=== PATIENT | female | born 1950 | race African-American/Black ===

== ENCOUNTER 2021-03-14 09:20 | Observation (INO) | payer OTHER ==
[2021-03-14] MEDS ORDERED: MECLIZINE HCL 12.5 MG TAB ONE (10:31)
[2021-03-14] MEDS ORDERED: ONDANSETRON 4 MG/2 ML VIAL ONE (10:31)
--- NOTE | 2021-03-14 10:32 | RAD REPORT ---
EXAM DESCRIPTION: CT - Head Brain Wo Cont - 03/14/2021 10:24 am CLINICAL HISTORY: DIZZINESS COMPARISON: No comparisons TECHNIQUE: Axial 5 mm thick images of the head were obtained without IV contrast. All CT scans are performed using dose optimization technique as appropriate and may include automated exposure control or mA/KV adjustment according to patient size. FINDINGS: No intracranial hemorrhage, mass, edema or shift of mid-line structures. No acute cortical based infarction seen. No cortical edema or sulcal effacement confirmed. Patient does have minimal a trophy change. Ventricles are normal. Moderately prominent areas of diminished attenuation are seen s cattered in the cerebral right matter extending towards the right basal ganglia. This is typically ch ronic ischemic change and could potentially mask nonhemorrhagic CVA. No abnormal extra-axial fluid co llections. Mastoid air cells and visualized portions of the paranasal sinuses are clear. No acute bony findings. IMPRESSION: No hemorrhage, mass, edema or acute cortical based infarction seen. Extensive chronic ischemic change in the cerebral white matter which could potentially mask nonhemorr hagic CVA.
[2021-03-14 10:44] LABS: Absolute Lymphocytes (CBC) 1.2 K/uL (0.7-4.9); Basophils % 0.5 % (0-1.3); Hematocrit 35.4 % (36.0-45.0); Lymphocytes % 14.3 % (15.3-44.8); MPV 9.9 fL (7.6-11.3); Protime INR 1.24; RBC Red Blood Cell Count 3.97 M/uL (3.86-4.86)
[2021-03-14] MEDS ORDERED: DIAZEPAM 10 MG/2 ML INJ SYRINGE ONE (11:26)
--- NOTE | 2021-03-14 11:46 | RAD REPORT ---
EXAM DESCRIPTION: CT - Head angio - 03/14/2021 11:29 am CLINICAL HISTORY: DIZZINESS TECHNIQUE: During dynamic enhancement using nonionic IV contrast, axial 1 millimeter thick images of the head were obtained. Sagittal and axial reconstruction images were generated using MIP technique and reviewed. All CT scans are performed using dose optimization technique as appropriate and may include automated exposure control or mA/KV adjustment according to patient size. COMPARISON: CT head same date FINDINGS: No aneurysm or vascular malformation identified. Major venous sinuses are patent. No stenosis, named branch occlusion, vasculitis or other significant vascular finding identifiable. Distal right vertebral artery wall calcifications are present without luminal narrowing. IMPRESSION: Negative CT angio head examination for acute or significant finding.
--- NOTE | 2021-03-14 11:48 | RAD REPORT ---
EXAM DESCRIPTION: CT - Neck Angio - 03/14/2021 11:29 am CLINICAL HISTORY: dizziness TECHNIQUE: During dynamic enhancement using nonionic IV contrast, axial 2 mm thick images of the nec k were obtained. Sagittal and axial reconstruction images were generated using MIP technique and revi ewed. All CT scans are performed using dose optimization technique as appropriate and may include automated exposure control or mA/KV adjustment according to patient size. COMPARISON: CT head same date, CTA head same date FINDINGS: No aneurysm or vascular malformation identified. No carotid or vertebral dissection. No aortic arch or great vessel origin abnormality seen. Vertebral artery origins unremarkable as well . No stenosis, vasculitis or other significant carotid artery finding. No focal abnormality of either vertebral artery. Basilar artery is normal. Scattered wall calcifications are present without lumina l narrowing. IMPRESSION: Negative CT angio neck examination for acute or significant finding.
[2021-03-14 11:53] LABS: ALT/SGPT 20 U/L (12-78); AST/SGOT 16 U/L (15-37); Albumin 3.6 g/dL (3.4-5.0); Alkaline Phosphatase 55 U/L (45-117); BUN Blood Urea Nitrogen 15 mg/dL (7-18); Bicarbonate 27 mmol/L (21-32); Bilirubin Direct 0.2 mg/dL (0-0.2); Bilirubin Total 0.8 mg/dL (0.2-1.0); Glucose Level 175 mg/dL (74-106); NT PRO-BNP 112 pg/mL (<125); Potassium 3.8 mmol/L (3.5-5.1); Sodium Level 138 mmol/L (136-145); Troponin (Emerg Dept Use Only) < 0.02 ng/mL (0.0-0.045)
--- NOTE | 2021-03-14 12:06 | RAD REPORT ---
EXAM DESCRIPTION: MRI - Brain Wo Cont - 03/14/2021 11:55 am CLINICAL HISTORY: DIZZINESS COMPARISON: Head Brain Wo Cont dated 03/14/2021 TECHNIQUE: Sagittal T1-weighted images were obtained along with axial PD, heavily T2-weighted and T2 -FLAIR images. Axial DWI and ADC mapping sequences were also obtained along with coronal heavily T2-w eighted images. FINDINGS: No intracranial hemorrhage, mass or acute infarction. There is no edema or shift of midlin e structures. No extra-axial fluid collections. Morrow-matter/white matter junction is preserved. Signa l voids are seen as a normal finding in the major intracranial vessels. No significant degree of atrophy noted. Ventricles are normal. Prominent T2/IR white matter signal ab normalities are present involving minimally the right basal ganglia and the right external capsule. P attern is typical for chronic ischemic change. Brainstem is spared. Mastoid air cells and paranasal sinuses are clear. No sella or supra sella suspicious finding. There is an empty sella configuration. No globe or orbita l content abnormality. IMPRESSION: No acute infarction changes. Moderate severity chronic ischemic change in the cerebral white matter and to a lesser degree the rig ht basal ganglia and right external capsule region.
[2021-03-14 13:35] LABS: Urine Blood 2+ (Negative); Urine Glucose NEGATIVE (Negative); Urine Protein NEGATIVE (Negative); Urine Specific Gravity 1.015 (1.005-1.030)
--- NOTE | 2021-03-14 15:06 | ER ---
Nurse's Notes [facility] Name: Carmina Obrien Age: 70 yrs Sex: Female : 1950 Arrival Date: 03/14/2021 Time: 09: Bed 19 Private MD: Diagnosis: Vertigo (Intractable) Presentation: 03/14 09:45 Chief complaint: Patient states: Dizziness, N/V that began Sunday at 0500. PT reports ss when she repositions the rooms seems like it's spinning. Coronavirus screen: Client denies travel out of the [place] in the last 14 days. Ebola Screen: Patient denies exposure to infectious person. Patient denies travel to an Ebola-affected area in the 21 days before illness onset. Initial Sepsis Screen: Does the patient meet any 2 criteria? No. Patient's initial sepsis screen is negative. Does the patient have a suspected source of infection? No. Patient's initial sepsis screen is negative. Risk Assessment: Do you want to hurt yourself or someone else? Patient reports no desire to harm self or others. Onset of symptoms was March 13, 2021. 09:45 Method Of Arrival: Wheelchair ss 09:45 Acuity: SHADY 3 ss Triage Assessment: :45 General: Appears distressed, uncomfortable, Behavior is cooperative, appropriate for bp age, anxious. Pain: Denies pain. EENT: No deficits noted. Neuro: Reports dizziness, photophobia. Cardiovascular: No deficits noted. Respiratory: No deficits noted. GI: Reports nausea. : No signs and/or symptoms were reported regarding the genitourinary system. Derm: No deficits noted. Musculoskeletal: No deficits noted. Historical: - Allergies: :47 No Known Allergies; ss - PMHx: :47 Hypertension; Diabetes - NIDDM; ss - PSHx: :47 cyst removal; ss - Immunization history:: Adult Immunizations up to date. - Social history:: Smoking status: Patient denies any tobacco usage or history of. Screenin:45 Abuse screen: Denies threats or abuse. Denies injuries from another. Nutritional bp screening: No deficits noted. Tuberculosis screening: No symptoms or risk factors identified. Fall Risk None identified. Assessment: :45 General: SEE TRIAGE NOTE. GI: Abdomen is non-distended. bp 11:00 Reassessment: No changes from previously documented assessment. Patient and/or family bp updated on plan of care and expected duration. Pain level reassessed. Patient is alert, oriented x 3, equal unlabored respirations, skin warm/dry/pink. PT TO MRI. 12:00 Reassessment: No changes from previously documented assessment. Patient and/or family bp updated on plan of care and expected duration. Pain level reassessed. Patient is alert, oriented x 3, equal unlabored respirations, skin warm/dry/pink. PT RETURNED FROM MRI. 12:59 Reassessment: Patient and/or family updated on plan of care and expected duration. Pain bp level reassessed. Patient is alert, oriented x 3, equal unlabored respirations, skin warm/dry/pink. PROVIDER AT B/S FOR RE-EVAL Patient states symptoms have improved. 15:00 Reassessment: No changes from previously documented assessment. Patient and/or family bp updated on plan of care and expected duration. Pain level reassessed. Patient is alert, oriented x 3, equal unlabored respirations, skin warm/dry/pink. ADMIT INITIATED. 17:00 Reassessment: No changes from previously documented assessment. Patient and/or family bp updated on plan of care and expected duration. Pain level reassessed. Neuro: Gait is unsteady. 18:00 Reassessment: No changes from previously documented assessment. Patient and/or family bp updated on plan of care and expected duration. Pain level reassessed. Patient is alert, oriented x 3, equal unlabored respirations, skin warm/dry/pink. ADMIT IN PROCESS. PT UNSTEADY WITH AMBULATION. Vital Signs: 09:45 BP 171 / 75; Pulse 64; Resp 15; Temp 98.1(TE); Pulse Ox 98% on R/A; Weight 70.31 kg; ss Height 5 ft. 6 in. (167.64 cm); Pain 0/10; 10:00 BP 152 / 58; Pulse 57; Resp 17; Pulse Ox 95% ; bp 11:00 BP 172 / 66; Pulse 55; Resp 15; Pulse Ox 97% ; bp 12:00 BP 177 / 66; Pulse 55; Resp 17; Pulse Ox 97% ; bp 13:00 BP 154 / 64; Pulse 63; Resp 15; Pulse Ox 100% ; bp 15:02 BP 163 / 69; Pulse 57; Resp 18; Temp 98.6(O); Pulse Ox 99% on R/A; mh5 16:00 BP 163 / 66; Pulse 54; Resp 16; Pulse Ox 99% ; bp 17:00 BP 157 / 67; Pulse 56; Resp 16; Pulse Ox 99% ; bp 18:00 BP 153 / 65; Pulse 58; Resp 16; Pulse Ox 98% ; bp 09:45 Body Mass Index 25.02 (70.31 kg, 167.64 cm) ED Course: 09:21 Patient arrived in ED. ds1 09:46 Triage completed. ss 09:47 Arm band placed on right wrist. 09:48 Amor Aj PA is PHCP. [facility] 09:48 Alfonzo Escobar MD is Attending Physician. [facility] 09:57 Tomas Amin, RN is Primary Nurse. bp 10:21 Basic Metabolic Panel Sent. mh5 10:22 CBC with Diff Sent. 5 10:22 LFT's Sent. 5 10:22 Magnesium Sent. 5 10:22 NT PRO-BNP Sent. 5 10:22 PT-INR Sent. 5 10:22 Troponin (emerg Dept Use Only) Sent. 5 10:22 Initial lab(s) drawn, by az, sent to lab. Inserted saline lock: 20 gauge in right [facility] antecubital area, using aseptic technique. Blood collected. 10:23 Patient has correct armband on for positive identification. Bed in low position. Call [facility] light in reach. Side rails up X2. Adult w/ patient. Warm blanket given. printed circuit board assembler on. Pulse ox on. NIBP on. 10:24 CT Head Brain wo Cont In Process Unspecified. EDMS 11:30 CT Head Angio In Process Unspecified. EDMS 11:30 CT Neck Angio In Process Unspecified. EDMS 11:54 MRI - Brain Wo Cont In Process Unspecified. EDMS 15:05 Alf Rodríguez MD is Hospitalizing Provider. [facility] 19:19 Primary Nurse role handed off by Tomas Amin, KEITH 19:19 Garret Pike, KEITH is Primary Nurse. 03/15 07:40 Primary Nurse role handed off by Garret Pike, KEITH bd Administered Medications: 03/14 10:20 Drug: Meclizine 25 mg Route: PO; bp 11:18 Follow up: Response: No adverse reaction bp 10:20 Drug: Zofran (Ondansetron) 4 mg Route: IVP; Site: right antecubital; bp 11:18 Follow up: Response: No adverse reaction bp 11:05 Drug: Valium (diazepam) 2 mg Route: IVP; Site: right antecubital; bp 12:21 Follow up: Response: No adverse reaction bp 13:05 Drug: Valium (diazepam) 2 mg Route: IVP; Site: right antecubital; bp 19:24 Follow up: Response: No adverse reaction sf Outcome: 15:05 Decision to Hospitalize by Provider. charlie 03/15 10:34 Patient left the ED. hb Signatures: Dispatcher [employer] EDMS Rosa Warner Joel, PA PA [facility] Karena Dietz ds1 Tere Dickinson RN RN ss Sommer Sullivan RN RN Tameka Ware [facility] Tomas Amin RN RN Garret Pike RN RN sf Corrections: (The following items were deleted from the chart) 03/14 13:16 12:59 Reassessment: PROVIDER AT B/S FOR RE-EVAL bp bp 18:32 17:00 Reassessment: No changes from previously documented assessment. Patient and/or bp family updated on plan of care and expected duration. Pain level reassessed. Patient is alert, oriented x 3, equal unlabored respirations, skin warm/dry/pink. ADMIT IN PROCESS. PT UNSTEADY WITH AMBULATION bp
--- NOTE | 2021-03-14 15:06 | EDPHYS ---
Physician Documentation [facility] Name: Carmina Obrien Age: 70 yrs Sex: Female : 1950 Arrival Date: 03/14/2021 Time: 09:21 Bed 19 Private MD: ED Physician Alfonzo Escobar HPI: 03/14 10:01 This 70 yrs old Black Female presents to ER via Wheelchair with complaints of jmm Dizziness, Nausea. 10:01 The patient presents with dizziness. Onset: The symptoms/episode began/occurred jmm acutely, 1 day(s) ago. Modifying factors: The symptoms are alleviated by nothing, the symptoms are aggravated by movement of head. Associated signs and symptoms: Pertinent positives: vomiting, diarrhea, Pertinent negatives: abdominal pain. The patient has experienced a previous episode. This is a 70 year old female with a history of dm, htn that presents to the ED with complaints of acute onset dizziness beginning yesterday with multiple episodes of vomiting, diarrhea. Denies abdominal pain. Patient states she has had vertigo in the past. . Historical: - Allergies: 09:47 No Known Allergies; ss - PMHx: 09:47 Hypertension; Diabetes - NIDDM; ss - PSHx: 09:47 cyst removal; ss - Immunization history:: Adult Immunizations up to date. - Social history:: Smoking status: Patient denies any tobacco usage or history of. ROS: 10:01 Constitutional: Negative for fever, chills, and weight loss, Cardiovascular: Negative jmm for chest pain, palpitations, and edema, Respiratory: Negative for shortness of breath, cough, wheezing, and pleuritic chest pain. 10:01 Abdomen/GI: Positive for nausea and vomiting, diarrhea, Negative for abdominal pain. 10:01 Neuro: Positive for dizziness. 10:01 All other systems are negative. Exam: 10:01 Head/Face: atraumatic. jmm 10:01 Neck: Trachea midline, Supple Chest/axilla: Normal chest wall appearance and motion. Cardiovascular: Regular rate and rhythm. No edema appreciated Respiratory: Normal respirations, no respiratory distress appreciated Abdomen/GI: Non distended, soft Back: Normal ROM Skin: General appearance color normal MS/ Extremity: Moves all extremities, no obvious deformities appreciated, no edema noted to the lower extremities Psych: Behavior is normal, Mood is normal, Patient is cooperative and pleasant 10:01 Constitutional: The patient appears alert, awake, uncomfortable. 10:01 Eyes: Nystagmus: nystagmus with fast component noted. 10:01 Neuro: Orientation: is normal, Mentation: is normal, Memory: is normal. Vital Signs: 09:45 BP 171 / 75; Pulse 64; Resp 15; Temp 98.1(TE); Pulse Ox 98% on R/A; Weight 70.31 kg; ss Height 5 ft. 6 in. (167.64 cm); Pain 0/10; 10:00 BP 152 / 58; Pulse 57; Resp 17; Pulse Ox 95% ; bp 11:00 BP 172 / 66; Pulse 55; Resp 15; Pulse Ox 97% ; bp 12:00 BP 177 / 66; Pulse 55; Resp 17; Pulse Ox 97% ; bp 13:00 BP 154 / 64; Pulse 63; Resp 15; Pulse Ox 100% ; bp 15:02 BP 163 / 69; Pulse 57; Resp 18; Temp 98.6(O); Pulse Ox 99% on R/A; mh5 16:00 BP 163 / 66; Pulse 54; Resp 16; Pulse Ox 99% ; bp 17:00 BP 157 / 67; Pulse 56; Resp 16; Pulse Ox 99% ; bp 18:00 BP 153 / 65; Pulse 58; Resp 16; Pulse Ox 98% ; bp 09:45 Body Mass Index 25.02 (70.31 kg, 167.64 cm) ss MDM: 09:51 Patient medically screened. [facility] 15:04 Data reviewed: vital signs, nurses notes. Counseling: I had a detailed discussion with [facility] the patient and/or guardian regarding: the historical points, exam findings, and any diagnostic results supporting the discharge/admit diagnosis, lab results, the need for further work-up and treatment in the hospital. ED course: I discussed the patient with Dr. Rodríguez, advises to give meclizine 25 mg q 6 hours. Will admit for intractable dizziness. . 03/14 09:57 Order name: Basic Metabolic Panel; Complete Time: 11:58 [facility] 03/14 09:57 Order name: CBC with Diff; Complete Time: 10:50 [facility] 03/14 09:57 Order name: LFT's; Complete Time: 11:58 [facility] 03/14 09:57 Order name: Magnesium; Complete Time: 11:58 [facility] 03/14 09:57 Order name: NT PRO-BNP; Complete Time: 11:58 [facility] 03/14 09:57 Order name: PT-INR; Complete Time: 10:50 [facility] 03/14 09:57 Order name: Troponin (emerg Dept Use Only); Complete Time: 11:58 [facility] 03/14 12:06 Order name: CREATININE WHOLE BLOOD [facility] 03/14 13:16 Order name: Urine Dipstick--Ancillary (enter results); Complete Time: 13:44 03/14 15:10 Order name: Basic Metabolic Panel [facility] 03/14 15:10 Order name: Basic Metabolic Panel; Complete Time: 09:15 [facility] 03/14 15:10 Order name: CBC with Automated Diff [facility] 03/14 09:57 Order name: EKG; Complete Time: 10:06 [facility] 03/14 09:57 Order name: Cardiac monitoring; Complete Time: 10:21 [facility] 03/14 09:57 Order name: EKG - Nurse/Tech; Complete Time: 12:22 [facility] 03/14 09:57 Order name: IV Saline Lock; Complete Time: 10:21 [facility] 03/14 09:57 Order name: Labs collected and sent; Complete Time: 10:05 [facility] 03/14 09:57 Order name: O2 Per Protocol; Complete Time: 10:04 [facility] 03/14 09:57 Order name: CT Head Brain wo Cont; Complete Time: 10:35 [facility] 03/14 10:58 Order name: CT Head Angio; Complete Time: 11:52 [facility] 03/14 10:58 Order name: CT Neck Angio; Complete Time: 11:52 [facility] 03/14 10:58 Order name: MRI - Brain Wo Cont; Complete Time: 12:08 [facility] 03/14 15:10 Order name: Consistent Carb (ADA) 1800 Jose EDKS 03/14 15:10 Order name: CBC with Automated Diff; Complete Time: 09:15 [facility] 03/14 09:57 Order name: O2 Sat Monitoring; Complete Time: 10:04 [facility] 03/14 10:09 Order name: Urine Dipstick-Ancillary (obtain specimen); Complete Time: 13:23 [facility] 03/14 10:47 Order name: Labs - recollect needed: recollect green top; Complete Time: 11:18 03/14 14:39 Order name: Margarito. Order: ambulate patient; Complete Time: 15: [facility] Administered Medications: 10:20 Drug: Meclizine 25 mg Route: PO; bp 11:18 Follow up: Response: No adverse reaction bp 10:20 Drug: Zofran (Ondansetron) 4 mg Route: IVP; Site: right antecubital; bp 11:18 Follow up: Response: No adverse reaction bp 11:05 Drug: Valium (diazepam) 2 mg Route: IVP; Site: right antecubital; bp 12:21 Follow up: Response: No adverse reaction bp 13:05 Drug: Valium (diazepam) 2 mg Route: IVP; Site: right antecubital; bp 19:24 Follow up: Response: No adverse reaction sf Disposition: 03/16 10:05 Co-signature as Attending Physician, Alfonzo Escobar MD I agree with the assessment and tw4 plan of care. Disposition: 03/14/21 15:05 Hospitalization ordered by Alf Rodríguez for Inpatient Admission. Preliminary diagnosis is Vertigo (Intractable). - Bed requested for [facility] ER HOLD. - Status is Inpatient Admission. hb - Condition is Stable. - Problem is an acute exacerbation. - Symptoms have improved. Signatures: Dispatcher [employer] EDKS Rosa Warner Joel, PA PA [facility] Tere Dickinson, RN RN Sommer Sullivan RN RN Tomas Amin, RN RN Alfonzo Salinas MD MD 4 Jane Andersen 2 Garret Pike RN sf Corrections: (The following items were deleted from the chart) 03/14 11: 11:01 [facility] 19[facility] 15:05 Hospitalization Ordered by A Anne JARAMILLO for Inpatient Admission. Preliminary mw2 diagnosis is Vertigo (Intractable). Bed requested for Telemetry/MedSurg (Inpatient). Status is Inpatient Admission. Condition is Stable. Problem is an acute exacerbation. Symptoms have improved. [facility] 03/15 10:34 03/14 19:45 03/14/2021 15:05 Hospitalization Ordered by A Anne JARAMILLO for Inpatient hb Admission. Preliminary diagnosis is Vertigo (Intractable). Bed requested for [facility] ER HOLD. Status is Inpatient Admission. Condition is Stable. Problem is an acute exacerbation. Symptoms have improved. mw2
[2021-03-14] MEDS ORDERED: ACETAMINOPHEN 500 MG TAB PO PRN (15:09)
[2021-03-14] MEDS ORDERED: ONDANSETRON 4 MG/2 ML VIAL IV PRN (15:09)
[2021-03-14 18:37] VITALS: O2SAT 99
[2021-03-14] MEDS: NA CHLORIDE 0.9% 1,000 ML IV SCH (20:00)
[2021-03-14] MEDS ORDERED: NA CHLORIDE 0.9% 1,000 ML ONE (20:02)
[2021-03-14 20:57] VITALS: BMI 25.0
[2021-03-15] MEDS ORDERED: MECLIZINE HCL 12.5 MG TAB ONE ×2 (00:11→06:31)
[2021-03-15] MEDS: MECLIZINE HCL 12.5 MG TAB PO PRN ×2 (00:45→06:16)
--- NOTE | 2021-03-15 04:45 | HP ---
Date of Admission: 03/14/2021 Chief Complaint: Dizziness, nausea, vomiting, and diarrhea. History Of Present Illness: This is a 70-year-old very pleasant female patient who came into emergen cy room with above-mentioned complaints. The patient says that yesterday morning around 5 o'clock in the morning, she woke up with some stomach upset, nausea, vomiting, and diarrhea. She had diarrhea multiple times all day yesterday, but has not had any diarrhea today. She has had some nausea, vomit ing yesterday morning and did not have any further nausea, vomiting until she came to emergency room today. She had another episode of nausea, vomiting. She has been describing feeling dizzy where she describes the room and objects going around and around every time she tries to move her head or trie s to get out of the bed. Denies any headache. No fever, chills. After she came to emergency room, she was given meclizine that did not help. She was given 2 doses of Valium IV that did not help and further extensive workup done in the emergency room and I was contacted requesting admission to the [facility]. I saw her this evening. She was still in the emergency room. Her daughter was with her at bedside. She was sleeping, easily arousable, not in distress and reported that last time before I e valuated her, she went to the bathroom, she still has dizziness, but it was somewhat better compared to before. Allergies: NO KNOWN ALLERGIES. Medications: Amlodipine 10 mg daily, aspirin 81 mg daily, atorvastatin 10 mg daily at bedtime, carve dilol 12.5 mg 2 times a day, glimepiride 1 mg, she takes half a tablet daily in morning with breakfas t, irbesartan 300 mg daily, spironolactone 25 mg daily in morning and Terazosin 2 mg daily at bedtime . Review of Systems: PARTS PROCESSOR: As mentioned above. GI: As mentioned above. All other systems reviewed and negative. Past Medical History: Significant for type 2 diabetes mellitus, hypertension, hyperlipidemia, gastro esophageal reflux disease, diverticulosis, renal cyst, chronic anemia and hypokalemia. Past Surgical History: Negative. Family History: Father and mother both had hypertension and mother had brain tumor. Social History: Negative for smoking, alcohol use. Physical Examination: Vital Signs: When she first came in, blood pressure 171/75, pulse 64, respiratory rate 15, temperatu re 98.1, oxygen saturation 98%. Weight 70.31 kg, height 5 feet 6 inches. General: Awake, alert, oriented, not in distress. HEENT: Head atraumatic, normocephalic. Conjunctivae nonerythematous. Sclerae white. Mouth, no thr ush or edema noted. Ears/Nose, no mass, lesion, discharge noted. Neck: Supple. No JVD, lymph nodes, bruit, thyromegaly noted. Lungs: Bilateral good equal air entry. Clear to auscultation. No rhonchi. No rales. Heart: Normal heart sounds, no murmur or gallop. Abdomen: Soft, bowel sounds normal. No guarding, rigidity, tenderness, mass, hepatosplenomegaly, dis tention, or bruit noted. Extremities: No leg edema. No calf tenderness. Skin: No rash, ulcer, cellulitis. Lymphatics: No lymph node enlargement in neck, supraclavicular, infraclavicular region. Neuro: No focal neurological deficit. Chest: Unremarkable. External Genitalia: Deferred. Rectal: Deferred. Laboratory Data: White count 8.5, hemoglobin 12, platelets 178. Sodium 138, potassium 3.8, chloride 107, bicarb 27, BUN 15, creatinine 0.93, glucose 175. Liver function tests unremarkable. Urinalysi s; 2+ blood, otherwise negative. CAT scan of the head was negative for any acute intracranial change s. MRI of the brain was also negative for any acute intracranial changes. CT angiogram of head and neck was negative for any acute changes. Impression: 1.Dizziness. 2.Benign positional vertigo. 3.Hypertension. 4.Hyperlipidemia. 5.Type 2 diabetes mellitus. 6.Gastroesophageal reflux disease. 7.Diverticulosis. 8.Renal cyst. 9.Microscopic hematuria. Plan: We will go ahead and admit the patient to hospital for further evaluation and management of th is problem. The patient is appropriate for observation. We will continue home medications. She has home medication supply and I have advised her to take her evening dose of blood pressure and cholest jack medication using her home supply. She was instructed not to take her diabetes medication while in the hospital. We will give her regular diet. I will see her tomorrow morning for followup. [facility] 6 hours should be given and I will see her tomorrow morning for followup. COVID-19 test was not done in the emergency room as I was told that the patient refused to get this test. IVÁN/MODL Voice ID: [id number]
[2021-03-15] MEDS: NA CHLORIDE 0.9% 1,000 ML IV SCH (05:00)
[2021-03-15 05:11] LABS: Absolute Lymphocytes (CBC) 1.9 K/uL (0.7-4.9); Basophils % 0.6 % (0-1.3); Hematocrit 31.1 % (36.0-45.0); Lymphocytes % 29.6 % (15.3-44.8); MPV 9.6 fL (7.6-11.3); RBC Red Blood Cell Count 3.45 M/uL (3.86-4.86)
[2021-03-15 05:15] LABS: BUN Blood Urea Nitrogen 14 mg/dL (7-18); Bicarbonate 24 mmol/L (21-32); Glucose Level 100 mg/dL (74-106); Potassium 3.6 mmol/L (3.5-5.1); Sodium Level 143 mmol/L (136-145)
[2021-03-15] MEDS ORDERED: NA CHLORIDE 0.9% 1,000 ML ONE (05:17)
[2021-03-15 08:29] VITALS: BP 124/64; TEMP 98.4
[2021-03-15] MEDS ORDERED: PNEUMOCOCCAL VACCINE 0.5 ML IMVAC ONE (10:00)
--- NOTE | 2021-03-15 12:17 | EKG ---
Test Date: 2021-03-14 Test Time: 10:38:44 Senior Product Integrity Engineer: PAUL MEASUREMENT RESULTS: Intervals: Rate: 53 OR: 184 QRSD: 88 QT: 444 QTc: 416 [place]: P: 66 OR: 184 QRS: 62 T: 69 INTERPRETIVE STATEMENTS: Sinus bradycardia Otherwise normal ECG Compared to ECG 06/29/2010 19:35:59 Sinus rhythm no longer present First degree AV block no longer present T-wave abnormality no longer present Electronically Signed On 03-15-21 12:13:40 CDT by Hardeep Logan
--- NOTE | 2021-03-16 17:56 | DS ---
Date of Discharge: 03/15/2021 Disposition: Discharged to go home. Physical Examination: HEENT: Unremarkable. Lungs: Clear to auscultation. Heart: Sounds normal. Abdomen: Soft. Bowel sounds normal. No guarding, rigidity, tenderness, or distention. Extremities: No leg edema. Discharge Medications And Instructions: Continue all prior home medications and meclizine 25 mg 4 times a day as needed for dizziness and the patient was instructed not to drive car or operate any hazardous machines after taking meclizine and while having dizziness. Follow up at office on 03/17/2021 at 9 a.m. Laboratory Data: Labs done during this hospitalization. Yesterday; white count 8.5, hemoglobin 12, platelets 178. Today; white count 6.3, hemoglobin 10.5, platelets 148. Yesterday; sodium 138, potassium 3.8, chloride 107, bicarb 27, BUN 15, creatinine 0.93, glucose 175. Liver function tests unremarkable. Troponin less than 0.02. Hospital Course: This is a 70-year-old pleasant female patient, admitted to the hospital with dizziness, nausea, vomiting, diarrhea. Please see dictated H and P for more information. After the patient was evaluated in the emergency room, she was admitted to the hospital as she was not able to go home because of significant symptom with her dizziness. She was given meclizine in ER and then we continued her meclizine 25 mg every 6 hours overnight. IV fluid hydration was given and overall her dizziness has improved. She reported that she still has some dizziness, but it is significantly better than before and she is otherwise medically stable for discharge. Her workup done in the emergency room was negative for any stroke. CAT scan and MRI of the brain were negative for any acute findings. Final Diagnoses: 1. Benign positional vertigo. 2. Dizziness secondary to above. 3. Anemia, unspecified. 4. Thrombocytopenia. 5. Hypertension. 6. Hyperlipidemia. 7. Type 2 diabetes mellitus. 8. Gastroesophageal reflux disease. 9. Diverticulosis. 10. Renal cyst. 11. Microscopic hematuria. IVÁN/MODL Voice ID: [id number] Report ID: [id number] MARISA
== END 2021-03-15 10:34 | disposition home or self-care (01) ==
LOC: ER 09:20 → INTOOBSV 15:08 → ERHOLD 15:08
PROVIDERS: ADMIT Internal Medicine; ATTEND Internal Medicine
DX: H81.10 Benign paroxysmal vertigo, unspecified ear (principal); D64.9 Anemia, unspecified; D69.6 Thrombocytopenia, unspecified; I10 Essential (primary) hypertension; E78.5 Hyperlipidemia, unspecified; E11.9 Type 2 diabetes mellitus without complications; K21.9 Gastro-esophageal reflux disease without esophagitis; K57.90 Diverticulosis of intestine, part unspecified, without perforation or abscess without bleeding; N28.1 Cyst of kidney, acquired; R31.29 Other microscopic hematuria; Z79.84 Long term (current) use of oral hypoglycemic drugs
CPT/HCPCS: 93005; 85025 ×2; 80048 ×2; 36415; 83735; 85610; 82565; 80076; 81003; 84484; 83880; 70450; 70496; 70498; 70551; 96375; 96374; 99284; Q9967; J3360; J7030 ×2; J2405; G0378 ×5